=== PATIENT | male | born 1980 | race Hispanic/Latino ===

== ENCOUNTER 2019-11-25 15:32 | Emergency (ER) | payer SELFPAY ==
[2019-11-25 17:05] VITALS: BP 146/77; TEMP 98.1; O2SAT 99
--- NOTE | 2019-11-25 17:07 | ED.PDOC ---
History of Present Illness - General Time Seen by Provider: 11/25/19 16:57 Additional Information: Patient is a 39-year-old male with chief complaint of flulike symptoms since yesterday. Patient began with a tooth ache in his right maxilla which he believes is abscessed. Patient went to see his dentist today who referred him to the ED because he had a temperature of 102. Patient complains of body aches, sinus congestion, nasal congestion, malaise. Patient indicates he has had recent flu exposure. Patient is otherwise healthy and has no other complaints. Review of Systems - Review of Systems Constitutional: States: chills, fever, malaise EENTM: States: nose congestion. Denies: throat pain, mouth swelling Respiratory: States: cough - Occasional, dry. Denies: short of breath, wheezing Cardiology: Denies: chest pain, palpitations Gastrointestinal/Abdominal: Denies: abdominal pain, nausea, vomiting Musculoskeletal: States: muscle pain. Denies: joint pain Skin: States: no symptoms reported. Denies: rash Neurological: States: no symptoms reported All other Systems: Reviewed and Negative Physical Exam - Physical Exam General Appearance: Alert, Comfortable, No apparent distress ENT Exam: nasal congestion, other - There is an obvious decayed molar eroded to the gumline in the right maxilla. Surrounding gums are normal in appearance. 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 Patient offered influenza testing but he elects to be treated empirically. Will DC home with amoxicillin and Tamiflu and Tylenol and patient to rest and follow-up with his PCP. Vital signs stable, patient is NAD and looks clinically well and I believe is safe for discharge with outpatient follow-up. Follow-up instructions, discharge instructions and return to ED precautions discussed with patient. Patient voices understanding and willingness to comply with instructions. All laboratory and radiographic results have been discussed with the patient, and all questions answered. Patient is happy with plan. Departure - Departure Clinical Impression: Infected dental caries, Viral illness Time of Disposition: 17:15 Disposition: Discharge to Home or Self Care Condition: Good Instructions: Flu, Tooth Abscess (DC) Referrals: CELINA KURTZ MD [Active Staff] - 1-5 Days Prescriptions: Acetaminophen [Tylenol] 650 mg PO Q6H #50 tab Amoxicillin 500 mg PO TID #21 tab Oseltamivir Capsule [Tamiflu] 75 mg PO DAILY 5 Days #5 capsule Home Medications: Ambulatory Orders Acetaminophen [Tylenol] 650 mg PO Q6H #50 tab 11/25/19 Amoxicillin 500 mg PO TID #21 tab 11/25/19 Oseltamivir Capsule [Tamiflu] 75 mg PO DAILY 5 Days #5 capsule 11/25/19
== END 2019-11-25 17:25 | disposition home or self-care (01) ==
LOC: ER 15:32
DX: K04.7 Periapical abscess without sinus (principal); K02.9 Dental caries, unspecified; B34.9 Viral infection, unspecified